=== PATIENT | male | born 1995 | race Caucasian/White ===

== ENCOUNTER 2016-08-13 04:30 | Emergency (ER) | payer OTHER ==
[2016-08-13] MEDS ORDERED: LIDOCAINE 5% 1 EA PATCH TD ONE (04:48)
[2016-08-13] MEDS ORDERED: HYDROCODONE/APAP 5/325 TAB PO ONE (04:48)
[2016-08-13] MEDS ORDERED: IBUPROFEN 600 MG TAB PO ONE (04:48)
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
[2016-08-13] MEDS ORDERED: SKIN ADHESIVE (DERMABOND) 1 EACH TP ONE ×2 (06:03→06:30)
[2016-08-13] MEDS ORDERED: KETAMINE 100 MG/10 ML SYR IVP ONE (06:12)
[2016-08-13] MEDS ORDERED: IOPAMIDOL (ISOVUE-300) 100 ML BTL ONE (07:15)
[2016-08-13] MEDS ORDERED: NS 1,000 ML IV ONE (07:25)
[2016-08-13 07:33] LABS: ANION GAP 11 mEq/L (8-16); CALCIUM 8.9 mg/dL (8.5-10.4); CARBON DIOXIDE 22 mEq/l (22-31); CHLORIDE 106 mEq/L (97-110); CREATININE 1.2 mg/dL (0.7-1.3); GLOMERULAR FILTRATION RATE > 60; GLUCOSE 97 mg/dL (70-100); POTASSIUM 3.5 mEq/L (3.3-5.0); SODIUM 139 mEq/L (134-144)
[2016-08-13] MEDS ORDERED: HYDROmorphONE/DILAUDID 1 MG/ML SYR IVP ONE ×2 (08:07→09:59)
[2016-08-13 08:36] LABS: % IMMATURE GRANULYOCYTES 0.5 % (0.0-1.1); ABSOLUTE IMMATURE GRANULOCYTES 0.08 10^3/uL (0.00-0.10); ADD DIFF? NO; ADD MORPH? NO; ADD SCAN? NO; ATYPICAL LYMPHOCYTE FLAG 10 (0-99); FRAGMENT RBC FLAG 0 (0-99); HEMATOCRIT 35.7 % (40.0-51.0); HEMOGLOBIN 12.3 g/dL (13.7-17.5); LEFT SHIFT FLG 0 (0-99); LIPEMIA HEMOLYSIS FLAG 90 (0-99); MEAN CELL HEMOGLOBIN 29.9 pg (27.9-34.1); MEAN CELL HEMOGLOBIN CONCENTR. 34.5 g/dL (32.4-36.7); MEAN CELL VOLUME 86.7 fL (81.5-99.8); MEAN PLATELET VOLUME 9.7 fL (8.7-11.7); PLATELET CLUMPS FLAG 0 (0-99); PLATELET COUNT 262 10^3/uL (150-400); RED BLOOD CELL COUNT 4.12 10^6/uL (4.40-6.38); RED CELL DISTRIBUTION WIDTH 12.6 % (11.5-15.2)
[2016-08-13 11:21] VITALS: BP 142/77; PULSE 66; RESP 14; TEMP 97.9; O2SAT 97
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
[2016-08-13] MEDS ORDERED: PATCH REMOVAL 1 EA PATCH TD SCH (21:00)
== END 2016-08-13 11:26 | disposition home or self-care (01) ==
LOC: EDUNIT#
DX: S22.41XA Multiple fractures of ribs, right side, initial encounter for closed fracture (principal); S02.5XXB Fracture of tooth (traumatic), initial encounter for open fracture; S01.01XA Laceration without foreign body of scalp, initial encounter; S01.81XA Laceration without foreign body of other part of head, initial encounter; S36.112A Contusion of liver, initial encounter; S20.412A Abrasion of left back wall of thorax, initial encounter; Y08.89XA Assault by other specified means, initial encounter; Y92.009 Unspecified place in unspecified non-institutional (private) residence as the place of occurrence of the external cause; Y99.8 Other external cause status; Y93.89 Activity, other specified
CPT/HCPCS: 82947-QW; 96374; J1170; Q9967